=== PATIENT | male | born 1990 | race Hispanic/Latino ===

== ENCOUNTER 2024-01-02 15:02 | Emergency (ER) | payer BC, SELFPAY ==
[2024-01-02] MEDS ORDERED: KETOROLAC 30 MG/ML INJ ONE (15:51)
[2024-01-02] MEDS ORDERED: dexAMETHasone 10 MG/ML VIAL ONE (15:51)
--- NOTE | 2024-01-02 16:39 | RAD REPORT ---
EXAM DESCRIPTION: RAD - Lumbar Spine 3 Views - 01/02/2024 4:24 pm CLINICAL HISTORY: Back pain FINDINGS: No fracture or dislocation is seen. No significant bone or joint abnormality noted
--- NOTE | 2024-01-02 16:40 | RAD REPORT ---
EXAM DESCRIPTION: RAD - Thoracic Spine Ap/Lat - 01/02/2024 4:24 pm CLINICAL HISTORY: Back pain FINDINGS: The alignment of the thoracic spine is satisfactory. No fracture is seen
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
--- NOTE | 2024-01-02 17:32 | ER ---
Nurse's Notes [facility] Name: Wolf Morrell Age: 33 yrs Sex: Male : 1990 Arrival Date: 01/02/2024 Time: 15:02 Bed DX5 Private MD: Diagnosis: Acute back pain Presentation: 01/01 15:42 Chief complaint: Patient states: he fell back and caught himself from his truck. ph patient did not hit the ground, patient did not hit his head. patient complains of mid upper back pain that is intermittent, of which he rates a 5/10 on the pain scale at this time. Coronavirus screen: At this time, the client does not indicate any symptoms associated with coronavirus-19. Ebola Screen: No symptoms or risks identified at this time. Initial Sepsis Screen: Does the patient meet any 2 criteria? No. Patient's initial sepsis screen is negative. Does the patient have a suspected source of infection? No. Patient's initial sepsis screen is negative. Risk Assessment: Do you want to hurt yourself or someone else? Patient reports no desire to harm self or others. Onset of symptoms was January 02, 2024. 15:42 Method Of Arrival: Ambulatory ph 15:42 Acuity: TAMARA 4 ph Triage Assessment: 15:44 General: Appears in no apparent distress. Behavior is calm, cooperative, appropriate ph for age. Pain: Complains of pain in back Pain at worst was 5 out of 10 on a pain scale. Is intermittent. Neuro: Oriented to person, place, time, situation. Cardiovascular: Patient's skin is warm and dry. Respiratory: Airway is patent Respiratory effort is even, unlabored, Respiratory pattern is regular, symmetrical. Musculoskeletal: Range of motion: intact in all extremities. Historical: - Allergies: 15:44 No Known Allergies; ph - Home Meds: 15:44 None [Active]; ph - PMHx: 15:44 None; ph - Infectious Disease History:: Denies. - Social history:: Smoking status: Patient denies any tobacco usage or history of. - Family history:: not pertinent. Screenin:45 [facility] ED Fall Risk Assessment (Adult) History of falling in the last 3 months, ph including since admission Yes- single mechanical fall (1 pt) Confusion or Disorientation No (0 pts) Intoxicated or Sedated No (0 pts) Impaired Gait No (0 pts) Mobility Assist Device Used No (0 pt) Altered Elimination No (0 pt) Score/Fall Risk Level 0 - 2 = Low Risk Oriented to surroundings, Maintained a safe environment, Educated pt \T\ family on fall prevention, incl call for assistance when getting out of bed, Assessed \T\ reinforced patient's understanding of fall precautions, Provided non-skid footwear, Hourly rounding (assess needs \T\ fall precautionary measures) done, Used ambulatory aids as needed (educated on \T\ assisted with), Used gait belt as appropriate. Abuse screen: Denies threats or abuse. Nutritional screening: No deficits noted. Tuberculosis screening: No symptoms or risk factors identified. Vital Signs: 15:42 BP 136 / 67; Pulse 67; Resp 18; Temp 98.9; Pulse Ox 99% on R/A; Weight 81.65 kg; Height ph 5 ft. 9 in. ; Pain 5/10; 15:42 Body Mass Index 26.58 (81.65 kg, 175.26 cm) ph 15:42 Pain Scale: Adult ph ED Course: 15:04 Patient arrived in ED. mr 15:21 Ulysses Denton MD is Attending Physician. rt 15:44 Triage completed. ph 15:45 Arm band placed on left wrist. ph 15:45 Patient has correct armband on for positive identification. Provided Education on: fall ph risk education. 16:26 Lumbar Spine (3 Views) XRAY In Process Unspecified. EDMS 16:26 XRAY Thoracic Spine (Ap/lat) In Process Unspecified. EDMS 17:44 No provider procedures requiring assistance completed. Patient did not have IV access cm10 during this emergency room visit. Administered Medications: 15:56 Drug: Dexamethasone IM 10 mg IM once Route: IM; Site: right deltoid; kb3 17:43 Follow up: Response: No adverse reaction; Marked relief of symptoms cm10 15:57 Drug: Ketorolac IVP 15 mg IVP once {Note: Given in left deltoid per MD verbal order - kb3 OK to give IM.} Route: IVP; Site: Other; 17:44 Follow up: Response: No adverse reaction; Marked relief of symptoms cm10 Medication: 15:45 VIS not applicable for this client. ph Outcome: 17:32 Discharge ordered by MD. rt 17:44 Discharged to home ambulatory, cm10 17:44 Condition: good 17:44 Discharge instructions given to patient, Instructed on discharge instructions, follow up and referral plans. medication usage, Demonstrated understanding of instructions, follow-up care, medications, Prescriptions given X 1, 17:44 Patient left the ED. cm10 Signatures: Dispatcher [employer] EDMO MoreYanique, Reg Reg mr Jhon Autumn, RN RN ph Mariah Harris, DERIC RN kb3 Ulysses Denton MD MD rt Stephania Cabezas RN RN cm10
[2024-01-02 23:41] VITALS: BP 136/67; TEMP 98.9; O2SAT 99
== END 2024-01-02 17:44 | disposition home or self-care (01) ==
LOC: ER 15:02
DX: M54.9 Dorsalgia, unspecified (principal)
CPT/HCPCS: 72100; 72070; J1100